=== PATIENT | female | born 2000 | race Two or more races ===

== ENCOUNTER → 2023-07-06 | Outpatient (CLI) | payer OTHER ==
[2023-07-06 15:05] LABS: HEMATOCRIT 37.1 % (36.0-47.0); HEMOGLOBIN 12.6 g/dl (12.0-15.5); MEAN CORPUSCULAR HEMOGLOBIN 30.5 pg (27.0-33.0); MEAN CORPUSCULAR VOLUME 89.8 fl (80.0-96.0); PLATELET COUNT, AUTOMATED 315 10^3/uL (150-450); RED BLOOD COUNT 4.13 10^6/uL (4.00-5.40); WHITE BLOOD COUNT 8.5 10^3/uL (4.0-10.0)
[2023-07-06 16:07] LABS: HIV 1&2 SCREEN NEGATIVE (NEGATIVE)
[2023-07-06 16:16] LABS: HEPATITIS C VIRUS ABY INDEX 0.02 INDEX (<0.8)
== END ==
LOC: M PLALAB 10:48
PROVIDERS: ATTEND Advanced Practice Midwife
DX: Z34.81 Encounter for supervision of other normal pregnancy, first trimester (principal)

== ENCOUNTER → 2023-08-28 | Outpatient (CLI) | payer OTHER | LOC: M RAD 12:37 | PROVIDERS: ATTEND Advanced Practice Midwife | DX: Z34.92 Encounter for supervision of normal pregnancy, unspecified, second trimester (principal) ==

== ENCOUNTER → 2023-10-17 | Outpatient (CLI) | payer OTHER | LOC: M WHC 08:18 | PROVIDERS: ATTEND Obstetrics & Gynecology | DX: Z36.2 Encounter for other antenatal screening follow-up (principal) ==

== ENCOUNTER → 2023-10-25 | Outpatient (CLI) | payer OTHER ==
[2023-10-25 14:54] LABS: HEMATOCRIT 38.1 % (36.0-47.0); HEMOGLOBIN 12.8 g/dl (12.0-15.5); MEAN CORPUSCULAR HEMOGLOBIN 30.8 pg (27.0-33.0); MEAN CORPUSCULAR HGB CONC 33.6 g/dl (32.0-36.5); MEAN CORPUSCULAR VOLUME 91.6 fl (80.0-96.0); PLATELET COUNT, AUTOMATED 291 10^3/uL (150-450); RED BLOOD COUNT 4.16 10^6/uL (4.00-5.40); WHITE BLOOD COUNT 8.3 10^3/uL (4.0-10.0)
== END ==
LOC: M PLALAB 09:02
PROVIDERS: ATTEND Advanced Practice Midwife
DX: Z34.82 Encounter for supervision of other normal pregnancy, second trimester (principal)

== ENCOUNTER 2025-03-17 20:07 | Emergency (ER) | payer OTHER ==
[~2025-03-17] VITALS: Ht 170.2 cm; Wt 86.5 kg
[2025-03-18] MEDS ORDERED: RALTEGRAVIR 400 MG TAB PO SCH
[2025-03-18 00:32] LABS: PLATELET COUNT, AUTOMATED 235 10^3/uL (150-450)
[2025-03-18] MEDS ORDERED: EXPOSURE KIT-ADULT 7 DAY SUPPLY PO ONE (00:35)
[2025-03-18 00:58] LABS: ALT/SGPT 28 U/L (7.0-40); AST/SGOT 25 U/L (<34); CALCIUM LEVEL 9.1 MG/DL (8.5-10.1); CARBON DIOXIDE LEVEL 24 MMOL/L (20-31); CHLORIDE LEVEL 108 MMOL/L (98-107); CREATININE FOR GFR 0.61 MG/DL (0.55-1.30); GLOMERULAR FILTRATION RATE > 90.0 (>60); POTASSIUM SERUM 3.8 MMOL/L (3.5-5.1); SODIUM LEVEL 140 MMOL/L (136-145)
[2025-03-18 01:08] LABS: HCG, SERUM QUALITATIVE NEGATIVE (NEGATIVE)
[2025-03-18 01:39] LABS: ATYPICAL LYMPH 21 % (0-5); BASOPHILS 1 % (0-1); LYMPHOCYTES 40 % (16-44); MONOCYTES 3 % (0-5); NEUTROPHILS 35 % (28-66)
[2025-03-18 01:40] LABS: PLATELET ESTIMATE NORMAL (NORMAL)
[2025-03-18] MEDS: AZITHROMYCIN 250 MG TABLET PO ONE (03:41)
[2025-03-18] MEDS: DOXYCYCLINE HYCLATE 100 MG TABLET PO ONE (03:41)
[2025-03-18] MEDS: LIDOCAINE 1% SDV 5 ML VIAL DILUENT ONE (03:42)
[2025-03-18] MEDS: RALTEGRAVIR 400 MG TAB PO ONE (03:42)
[2025-03-18] MEDS: cefTRIAXone 500 MG VIAL IM ONE (03:42)
[2025-03-18] MEDS: ULIPRISTAL ACETATE 30 MG TAB PO ONE (03:47)
[2025-03-18 04:00] VITALS: BP 129/73; TEMP 98.4; O2SAT 98
[2025-03-18] MEDS ORDERED: RALT40TA PO (04:04)
[2025-03-18] MEDS ORDERED: DOXY-442 PO (04:04)
[2025-03-18] MEDS ORDERED: EMTR1TAB16 PO (04:04)
[2025-03-18] MEDS ORDERED: ONDA-282 PO (04:05)
[2025-03-18 04:18] LABS: HEPATITIS B SURFACE ANTIBODY NEGATIVE (POSITIVE)
[2025-03-18 04:42] LABS: HIV 1&2 SCREEN NEGATIVE (NEGATIVE)
[2025-03-18 04:50] LABS: HEPATITIS C VIRUS ABY INDEX 0.02 INDEX (<0.8)
[2025-03-18 05:07] LABS: Trichomonas vaginalis (AMP) NOT DETECTED (NEGATIVE)
[2025-03-18 05:30] LABS: GC DNA AMPLIFICATION NEGATIVE (NEGATIVE)
== END 2025-03-18 04:47 | disposition home or self-care (01) ==
LOC: M ED 20:07
DX: T76.21XA Adult sexual abuse, suspected, initial encounter (principal); F17.210 Nicotine dependence, cigarettes, uncomplicated; Z88.0 Allergy status to penicillin; Z79.2 Long term (current) use of antibiotics; Z79.899 Other long term (current) drug therapy
CPT/HCPCS: 80053; 84703; 85025; 86706; 86780; 86803; 87340; 87389; 87661; 87810; 87850; 96372; 99284; J0696